=== PATIENT | female | born 2005 | race Caucasian/White ===

== ENCOUNTER 2023-01-15 17:41 | Emergency (ER) | payer OTHER ==
[~2023-01-15] VITALS: Ht 170.2 cm; Wt 79.4 kg
[2023-01-15 18:23] VITALS: BP 90/68
[2023-01-15] MEDS ORDERED: LORazepam 0.5 MG TAB PO ONE (20:10)
[2023-01-15] MEDS ORDERED: IBUP-2213 PO (20:16)
[2023-01-15] MEDS ORDERED: ACET-2619 PO (20:16)
--- NOTE | 2023-01-15 20:47 | NUR ---
Patient discharged with v/s stable. Written and verbal after care instructions given and explained. Patient alert, oriented and verbalized understanding of instructions. Ambulatory with steady gait. All questions addressed prior to discharge. ID band removed. Patient advised to follow up with PMD. Rx of MOTRIN AND TYLENOL given. Patient educated on indication of medication including possible reaction and side effects. Opportunity to ask questions provided and answered.
== END 2023-01-15 20:47 | disposition home or self-care (01) ==
LOC: MED 17:41
DX: S09.90XA Unspecified injury of head, initial encounter (principal); F41.9 Anxiety disorder, unspecified; Z79.899 Other long term (current) drug therapy; Z79.1 Long term (current) use of non-steroidal anti-inflammatories (NSAID); V49.9XXA Car occupant (driver) (passenger) injured in unspecified traffic accident, initial encounter; Y93.89 Activity, other specified; Y92.410 Unspecified street and highway as the place of occurrence of the external cause; Y99.8 Other external cause status
CPT/HCPCS: 99283

== ENCOUNTER 2023-01-27 09:38 | Emergency (ER) | payer OTHER ==
[~2023-01-27] VITALS: Ht 167.6 cm; Wt 79.4 kg
[~2023-01-27 09:38] MED LIST: ACET-2619 PO; IBUP-2213 PO
[2023-01-27 10:19] VITALS: BP 105/58
--- NOTE | 2023-01-27 10:25 | NUR ---
TO LOBBY. AWAIT ASSIGNMENT FOR BED.
--- NOTE | 2023-01-27 11:09 | NUR ---
AMB. TO BED A
[2023-01-27] MEDS ORDERED: CEPH-588 PO (11:37)
--- NOTE | 2023-01-27 12:15 | NUR ---
Patient discharged with v/s stable. Written and verbal after care instructions CELLULITIS, given and explained. Patient verbalized understanding. Ambulatory with steady gait. All questions addressed prior to discharge. Advised to follow up with PMD.
== END 2023-01-27 12:15 | disposition home or self-care (01) ==
LOC: MED 09:38
DX: T24.021A Burn of unspecified degree of right knee, initial encounter (principal); T31.0 Burns involving less than 10% of body surface; L03.115 Cellulitis of right lower limb; Z79.899 Other long term (current) drug therapy
CPT/HCPCS: 99283